=== PATIENT | male | born 1930 | race Two or more races ===

== ENCOUNTER 2016-03-10 10:11 | Inpatient (IN) | payer MEDICARE ==
[~2016-03-10] VITALS: Ht 177.8 cm; Wt 84.5 kg
[2016-03-10] MEDS ORDERED: SODIUM CHLORIDE 0.9% 1,000 ML IVB ONE (11:01)
[2016-03-10 11:08] LABS: Basophils # (auto) 0 uL; Basophils % (auto) 0.1 % (0.0-2.0); Eosinophils # (auto) 0 uL; Eosinophils % (auto) 0.4 % (0.0-7.0); Hematocrit 44.8 % (41.0-53.0); Lymphocytes # (auto) 0.7 uL; Lymphocytes % (auto) 7.5 % (10.0-50.0); Mean Corpuscular Hemoglobin 33.6 pg (28.0-32.0); Mean Corpuscular Hgb Conc. 33.4 g/dL (32.0-36.0); Mean Corpuscular Volume 100.7 fL (80.0-100.0); Mean Platelet Volume 9.2 fL (7.4-10.4); Monocytes # (auto) 0.6 uL; Monocytes % (auto) 6.8 % (0.0-12.0); Neutrophils # (auto) 7.9 uL; Neutrophils % (auto) 85.2 % (37.0-80.0); Platelet Count (auto) 195 10^3/uL (140-450); Red Cell Distribution Width 13.1 % (11.6-16.0); White Blood Cell 9.2 10^3/uL (4.4-10.8)
[2016-03-10] MEDS ORDERED: ASPirin 81 mg TAB PO ONE (11:15)
[2016-03-10 11:30] LABS: Albumin 3.9 g/dL (3.4-5.0); BUN/Creatinine Ratio 14.9; Bilirubin, Total 0.8 mg/dL (0.2-1.0); Calcium 8.7 mg/dL (8.5-10.1); Potassium 4.5 mmol/L (3.5-5.1); Total Protein 7.1 g/dL (6.4-8.2)
[2016-03-10] MEDS ORDERED: NITROGLYCERIN 0.4 MG SL TAB SL PRN (15:30)
[2016-03-10] MEDS ORDERED: TEMAZEPAM 15 MG CAP PO PRN (15:30)
[2016-03-10] MEDS ORDERED: DEXTROSE (50%) 50ML SYRG IV PRN (15:30)
[2016-03-10] MEDS ORDERED: ACETAMINOPHEN 325 MG TAB PO PRN (15:30)
[2016-03-10] MEDS ORDERED: DOCUSATE SOD 100 MG CAP PO PRN (15:30)
[2016-03-10] MEDS ORDERED: MORPHINE SULF INJ 2 MG/ML SYRINGE 1ML IV PRN ×2 (15:30)
[2016-03-10] MEDS ORDERED: ONDANSETRON HCL 4 MG/2 ML VIAL IV PRN (15:30)
[2016-03-10] MEDS ORDERED: ASPirin-EC 81 mg tab PO ONE (15:45)
[2016-03-10] MEDS ORDERED: LISINOPRIL 5 MG TAB PO ONE (15:45)
[2016-03-10] MEDS ORDERED: MULTIPLE VITAMIN TAB PO ONE (15:45)
[2016-03-10] MEDS: ACCU-CHEK COMFORT CURVE STRIP VI SCH ×2 (17:09→21:53)
[2016-03-10] MEDS: InsuLIN REG 1unit/0.01ml Soln (100units/ml) SC SCH ×2 (17:14→21:53)
[2016-03-10 18:30] VITALS: BP 145/79
[2016-03-10 21:43] VITALS: BP 151/80
[2016-03-10] MEDS: SODIUM CHLOR 0.9% PF (SALINE LOCK) 10ML VIAL IV SCH (21:46)
[2016-03-10] MEDS: TERAZOSIN HCL 5 MG CAP PO SCH (21:47)
[2016-03-10] MEDS: FAMOTIDINE 20 MG TAB PO SCH (21:52)
[2016-03-10] MEDS ORDERED: TERAZOSIN HCL 1 MG CAP PO SCH (22:00)
[2016-03-10] MEDS ORDERED: ATORVASTATIN 20 MG TAB PO SCH (22:00)
[2016-03-11] MEDS: HYDROcodone-ACET 5/325MG TAB PO PRN ×4 (00:28→20:27)
[2016-03-11 04:23] LABS: Urine RBC None Seen /hpf (0 - 3)
[2016-03-11 04:39] VITALS: BP 136/60
[2016-03-11 05:06] LABS: Urine Bilirubin Negative (Negative); Urine Blood Negative /uL (Negative); Urine Color Yellow (Yellow); Urine Glucose Normal (Normal); Urine Ketone Negative (Negative); Urine Nitrite Negative (Negative); Urine Urobilinogen Normal (Negative); Urine pH 5.5 (5.0-8.0)
[2016-03-11 06:37] LABS: Basophils # (auto) 0 uL; Basophils % (auto) 0.1 % (0.0-2.0); DEFINITIVE VIEW TRANSMISSION; Eosinophils # (auto) 0 uL; Eosinophils % (auto) 0.1 % (0.0-7.0); Hematocrit 41.1 % (41.0-53.0); Hemoglobin 13.4 g/dL (13.5-17.5); Lymphocytes # (auto) 0.7 uL; Lymphocytes % (auto) 8.2 % (10.0-50.0); Mean Corpuscular Hemoglobin 33.5 pg (28.0-32.0); Mean Corpuscular Hgb Conc. 32.6 g/dL (32.0-36.0); Mean Corpuscular Volume 102.7 fL (80.0-100.0); Mean Platelet Volume 9.5 fL (7.4-10.4); Monocytes # (auto) 0.8 uL; Monocytes % (auto) 9.5 % (0.0-12.0); Neutrophils # (auto) 7.1 uL; Neutrophils % (auto) 82.1 % (37.0-80.0); Platelet Count (auto) 176 10^3/uL (140-450); Red Cell Distribution Width 13.5 % (11.6-16.0); White Blood Cell 8.6 10^3/uL (4.4-10.8)
[2016-03-11] MEDS: SODIUM CHLOR 0.9% PF (SALINE LOCK) 10ML VIAL IV SCH ×3 (06:44→22:01)
[2016-03-11] MEDS: InsuLIN REG 1unit/0.01ml Soln (100units/ml) SC SCH (06:45)
[2016-03-11] MEDS: ACCU-CHEK COMFORT CURVE STRIP VI SCH (06:45)
[2016-03-11] MEDS: LEVOTHYROXINE SODIUM 25 MCG TAB PO SCH (06:45)
[2016-03-11 06:50] LABS: Albumin 3.5 g/dL (3.4-5.0); BUN/Creatinine Ratio 16.7; Calcium 8.2 mg/dL (8.5-10.1); Potassium 4.1 mmol/L (3.5-5.1)
[2016-03-11 06:53] LABS: Total Protein 6.4 g/dL (6.4-8.2)
[2016-03-11 08:30] VITALS: BP 151/73
[2016-03-11] MEDS ORDERED: LISINOPRIL 5 MG TAB PO SCH (10:00)
[2016-03-11] MEDS: MONTELUKAST SODIUM 10 MG TAB PO SCH (10:00)
[2016-03-11] MEDS: ASPirin-EC 81 mg tab PO SCH (10:51)
[2016-03-11] MEDS: FAMOTIDINE 20 MG TAB PO SCH ×2 (10:51→22:00)
[2016-03-11] MEDS: MULTIPLE VITAMIN TAB PO SCH (10:51)
[2016-03-11] MEDS ORDERED: MONT10TA34 PO (12:11)
[2016-03-11] MEDS ORDERED: LISI2.5T47 PO (12:11)
[2016-03-11] MEDS ORDERED: TERA10CA36 PO (12:11)
[2016-03-11] MEDS ORDERED: LEVO137T3 PO (12:11)
[2016-03-11 12:42] VITALS: BP 144/72
[2016-03-11 17:16] VITALS: BP 144/57
[2016-03-11 17:18] VITALS: BP_SYST 132; BP_SYST 133; BP_DIAS 49; BP_DIAS 56
[2016-03-11] MEDS: TERAZOSIN HCL 5 MG CAP PO SCH (22:00)
[2016-03-11 22:03] VITALS: BP 150/71
[2016-03-12 05:00] VITALS: BP 148/80
[2016-03-12] MEDS: HYDROcodone-ACET 5/325MG TAB PO PRN (05:46)
[2016-03-12] MEDS: LEVOTHYROXINE SODIUM 25 MCG TAB PO SCH (05:47)
[2016-03-12] MEDS: SODIUM CHLOR 0.9% PF (SALINE LOCK) 10ML VIAL IV SCH (05:47)
[2016-03-12 08:00] VITALS: BP 155/70
[2016-03-12] MEDS ORDERED: LISINOPRIL 5 MG TAB PO SCH (10:00)
[2016-03-12] MEDS: MONTELUKAST SODIUM 10 MG TAB PO SCH (10:00)
[2016-03-12 10:18] LABS: Hematocrit 43.2 % (41.0-53.0); Hemoglobin 14.3 g/dL (13.5-17.5); Mean Corpuscular Hemoglobin 33.4 pg (28.0-32.0); Mean Corpuscular Volume 101.2 fL (80.0-100.0); Platelet Count (auto) 167 10^3/uL (140-450); White Blood Cell 7.9 10^3/uL (4.4-10.8)
[2016-03-12 10:31] LABS: Albumin 3.6 g/dL (3.4-5.0); BUN/Creatinine Ratio 16.7; Bilirubin, Total 1.3 mg/dL (0.2-1.0); Calcium 8.9 mg/dL (8.5-10.1); Potassium 4.5 mmol/L (3.5-5.1); Total Protein 7.2 g/dL (6.4-8.2)
[2016-03-12 10:36] LABS: Metamyelocytes % 0; Myelocytes % 0; Promyelocytes % 0; Reactive Lymphocytes 0
[2016-03-12] MEDS: FAMOTIDINE 20 MG TAB PO SCH (11:04)
[2016-03-12] MEDS: ASPirin-EC 81 mg tab PO SCH (11:04)
[2016-03-12] MEDS: MULTIPLE VITAMIN TAB PO SCH (12:05)
[2016-03-12 12:12] LABS: Platelet Estimate Adequate
[2016-03-12 12:13] LABS: Anisocytosis Slight
[2016-03-12 12:53] VITALS: BP 155/70
[2016-03-12 12:55] VITALS: BP 173/73
== END 2016-03-12 13:50 | disposition home or self-care (01) | DRG 563 ==
LOC: ER 10:14 → TELE 10:15 → TELE-CENTR 17:53
PROVIDERS: ADMIT Internal Medicine; ATTEND Internal Medicine
DX: S62.336A Displaced fracture of neck of fifth metacarpal bone, right hand, initial encounter for closed fracture (principal); E03.9 Hypothyroidism, unspecified; E11.21 Type 2 diabetes mellitus with diabetic nephropathy; E11.22 Type 2 diabetes mellitus with diabetic chronic kidney disease; E11.65 Type 2 diabetes mellitus with hyperglycemia; I12.9 Hypertensive chronic kidney disease with stage 1 through stage 4 chronic kidney disease, or unspecified chronic kidney disease; I25.10 Atherosclerotic heart disease of native coronary artery without angina pectoris; J45.909 Unspecified asthma, uncomplicated; N18.2 Chronic kidney disease, stage 2 (mild); N40.0 Benign prostatic hyperplasia without lower urinary tract symptoms; R07.89 Other chest pain; W18.30XA Fall on same level, unspecified, initial encounter; Y93.89 Activity, other specified; Y92.89 Other specified places as the place of occurrence of the external cause; Y99.8 Other external cause status; Z90.49 Acquired absence of other specified parts of digestive tract; Z98.890 Other specified postprocedural states; Z87.891 Personal history of nicotine dependence; R55 Syncope and collapse
CPT/HCPCS: 36415; 70450; 71010; 73130; 80053; 81001; 82962; 83036; 83735; 84443; 84484; 85007; 85025; 85027; 87086; 93005; 93306; 93886; 94761; J1815